=== PATIENT | male | born 2005 | race Caucasian/White ===

== ENCOUNTER 2024-04-23 14:10 | Emergency (ER) | payer MEDICAID, SELFPAY ==
[2024-04-23 14:24] VITALS: BP 127/87; PULSE 80; RESP 16; TEMP 36.7; O2SAT 99; BMI 18.6
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
[2024-04-23] MEDS: ketorolac 30 mg/mL INJ IM (15:10)
[2024-04-23 15:14] VITALS: BP 129/90; PULSE 82; RESP 16; O2SAT 100
== END 2024-04-23 15:13 | disposition home or self-care (01) ==
PROVIDERS: Emergency Provider Student in an Organized Health Care Education/Training Program
DX: S16.1XXA Strain of muscle, fascia and tendon at neck level, initial encounter (principal); S39.012A Strain of muscle, fascia and tendon of lower back, initial encounter; V89.2XXA Person injured in unspecified motor-vehicle accident, traffic, initial encounter
CPT/HCPCS: 96372; 99284; J1885